=== PATIENT | female | born 1975 | race Caucasian/White ===

== ENCOUNTER → 2021-07-04 | Outpatient (CLI) | payer OTHER ==
[~2021-07-04] MED LIST: E-Z-GAS II EFFERVESCENT PACKET (SODIUM BICARB./CITRIC ACID/SIMETHICONE) As Ordered ONE; E-Z-HD 98% w/w 340GM SUSP BTL As Ordered ONE; E-Z-PAQUE 96% w/w SUSP 176GM BTL As Ordered ONE
--- NOTE | 2021-07-04 17:44 | REP ---
INDICATION: GERD, DYSPHAGIA. COMPARISON: None TECHNIQUE: This procedure was performed by Amber Garcia [facility], under the direct supervision of Dr. Poe. Images were reviewed with Dr. Poe prior to dictation. Liquid barium and gas producing crystals were given in the erect position, as well as liquid barium in the prone oblique position in order to perform a double contrast esophagram. FINDINGS: A single view PA chest x-ray is submitted as a lang path therapist film. The superior mediastinal structures are midline. The heart size is within normal limits. The lungs are clear. The oral and pharyngeal stages of deglutition were unremarkable. Esophageal transport is prompt and efficient and there is no evidence of esophagitis, stricture, or mucosal ring. There is no evidence of a hiatal hernia. No gastroesophageal reflux was visualized. IMPRESSION: Unremarkable esophagram. 0.6 minutes of fluoroscopy time was utilized for this procedure. Some fluoroscopic images are performed with last image hold technology. These images require no additional radiation. <Electronically signed by Amber Garcia > 07/04/21 1625 <Electronically signed by Julio Poe > 07/04/21 0105
== END ==
LOC: M RAD 08:52
PROVIDERS: ATTEND Physician Assistant Medical
DX: K21.9 Gastro-esophageal reflux disease without esophagitis (principal); R13.10 Dysphagia, unspecified

== ENCOUNTER → 2021-07-19 | Outpatient (CLI) | payer OTHER ==
[~2021-07-19] MED LIST changes: +ALLE180T33 PO; -E-Z-GAS II EFFERVESCENT PACKET (SODIUM BICARB./CITRIC ACID/SIMETHICONE) As Ordered ONE; -E-Z-HD 98% w/w 340GM SUSP BTL As Ordered ONE; -E-Z-PAQUE 96% w/w SUSP 176GM BTL As Ordered ONE; +LEVOTAB10 PO; +MONT10TA10 PO; +PANT40TA29 PO
== END ==
LOC: M LABSMTC 11:46
PROVIDERS: ATTEND Anesthesiology
DX: Z01.812 Encounter for preprocedural laboratory examination (principal); Z20.822 Contact with and (suspected) exposure to COVID-19

== ENCOUNTER 2021-07-24 10:37 | Day surgery (SDC) | payer OTHER ==
[~2021-07-24] VITALS: Ht 162.6 cm; Wt 86.5 kg
[~2021-07-24 10:37] MED LIST changes: +NS 1,000 ML IV ONE
--- OUTSIDE RECORDS SUMMARY | 2021-07-24 10:41 | CCD | Clinical Summary ---
Author [facility] Organization [facility] Address [address] [place] [address] Phone Care Team Providers Care Chief Creative Officer Name Role Phone Angeline He PP [phone] [facility], Manuel LOPEZ Unavailable [phone] Faisal Johnson MD Unavailable [phone] Reason for Referral No Reason for Referral Recorded Reason for Visit and Chief Complaint visit for: Problems Includes: Problems addressed during this encounter and other active Problems All Visits Onset Date - Time Resolved Date - Time Provider Co ndition Status Hemangioma 10/03/2020 - 12:00AM Angeline FREEMAN A ctive Note: per MRI of spine dated 10-03-20: several small hemangiomas; referred to control systems specialist Tendonitis Elbow 03/17/2019 - 12:00AM Angeline FREEMAN Active Note: Unchanged Esophageal Reflux 03/17/2019 - 12:00AM Angeline FREEMAN Active Note: Unchanged Generalized Anxiety Disorder 09/10/2018 - 12:00AM Angeline FREEMAN Active Note: Unchanged Allergic Rhinitis 09/13/2017 - 12:00AM Angeline FREEMAN Active Note: Unchanged Nicotine Dependence 09/13/2017 - 12:00AM Angeline FREEMAN Active Note: Unchanged Palpitations 02/27/2016 - 12:00AM Angeline FREEMAN A ctive Note: Unchanged - a few leo hs ago- just sitting on the couch Impaired Fasting Glucose 02/15/2014 - 12:00AM Angeline FREEMAN Active Note: 02/2014 BG 104, repeat 3 months ALLERGIC DRUG REACTION TO PENICILLIN 12/13/2013 - 12:00AM Angeline FREEMAN Active Note: Unchanged Pigmented Nevus 12/10/2013 - 12:00AM Angeline Ramirez Active Note: Unchanged - , possibly dysplastic, patient is freckled with several jackie back, will send to derm for eval please see Derm Consult 04/2014 Plan of Treatment Referrals To Diagnosis Rheumatology Sicca syndrome, unsp ecified Note: Please schedule patient with provi lyndsey for Sjorgen syndrome. Future Appointments Date Time Location Provider Acute Follow-up Well 07/18/2021 8:00AM [facility] Tarik Morley NP [facility] 03/12/2022 8:00AM [facility] Angeline FREEMAN Future Tests Order Diagnosis Results Due Ordering Provid er [id number] - *Revisit Acute Acute Follow-up Telepho clover Sicca syndrome, unspecified 05/18/21 Janette Morley NP Assessments Includes: Assessments from this encounter - Sjogren syndrome Instructions Includes: Instructions from this encounterNo Instructions Recorded Medical Equipment - Implanted Devices Includes: Current DevicesNo Medical Equipment Recorded Medications Includes: Medications discussed during this encounter and other current Medicati ons New / Renewed during this visit Janette ceron CONNECTION WORKER on 05/18/2021 predniSONE 10 MG Oral Tablet Provider: Janette Morley NP 9 day supply: 18 tablet, 0 refills Diagnosis: Sicc a syndrome, unspecified 30mg x 3 days, 20mg x 3 days, 10mg x 3 days Pharmacy: [id number] - [id number] [facility], [phone] Current Medications (continue as prescribed) Pantoprazole Sodium 40 MG Oral Tablet Delayed Release 2020 - 09/13/2021 Provider: Janette Morley NP Diagnosis: Gastro-esophageal re flux disease without esophagitis take one tablet daily Tarik Multivitamin for Women Oral Tablet 03/10/2021 Provider: Diagnosis: 1 tqb po daily EpiPen 2-Anival 0.3 MG/0.3ML Injection Solution Auto-injector 0 03/10/2021 Provider: Angeline FREEMAN Diagnosis: Anaphyl reaction due to advrs eff drug/med prop admin, init use as directed keep on hand for refills Levocetirizine Dihydrochloride 5 MG Oral Tablet 03/10/2021 Provider: Angeline FREEMAN Diagnosis: Allergic rhinitis, u nspecified 1 every bedtime Montelukast Sodium 10 MG Oral Tablet 03/10/2021 Pro vider: Angeline FREEMAN Diagnosis: Allergic rhinitis, u nspecified 1 every bedtime Omeprazole 20 MG Oral Capsule Delayed Release 03/10/2021 Provider: Angeline FREEMAN Diagnosis: Gastro-esophageal re flux disease with esophagitis once a day Medications Administered Includes: Administered Medications from this encounterNo Administered Medications Recorded Vital Signs Includes: Vital Signs from this encounterNo Vital Signs Recorded For Specified Dates Results Includes: Results discussed during this encounterNo Results Recorded For Specified Dates History of Present Illness Includes: History of Present Illness from this encounterNo History of Present Illness Recorded Social History No Social History Recorded - Smoking Status Unknown Procedures and Surgical History Includes: Procedures from this encounterNo Procedures For Specified Dates. No Surgical History Recorded Medical History Includes: Medical History addressed during this encounterNo Medical History Recorded Family History Includes: Family History addressed during this encounterNo Family History Recorded Review of Systems Includes: Review of Systems from this encounterNo Review of Systems Recorded Mental Status Includes: Mental Status from this encounterNo Mental Status Recorded Functional Status Includes: Functional Status from this encounterNo Functional Status Recorded Physical Exam Includes: Physical Exam from this encounterNo Physical Exam Recorded Immunizations Includes: Immunizations addressed during this encounterNo Immunizations Recorded Allergies Includes: Active Allergies Substance Type Reaction Onset Date - Time Resolved Date - Ti me Status Amoxicillin Allergy Skin Rashes, Hives 11/26/2011 - 12:00AM Active Note: severe reaction, vomit ing, diarrhea, sent to ER Encounters Encounter Provider Location Date Check-In Time Check-Out Time D iagnosis [Patient Encounter] Janette Morley NP 05/18/2021 2:02PM 11:59PM Sjogren Syndrome Insurance Includes: Active Insurance Policies Plan Name Member ID Group # Subscriber Relationship Effective Da bryanna 1 - [employer] [id number] Yuko Ray Self 06/07/2020 - Unknown Advance Directives Includes: Current Advance Directives Directive Pat Aware Third Alliance Party Effective Date Reviewed Status RHIO Yes 12/31/2012 Current and Ve rified Note: 12/01/12 Ebola Screening Performed Yes 09/11/2019 Current and Verified Note: Within the last month, have you traveled outside of the [place]? - NO packet given Pt Bill of Rights, Priv Prac, Ad Dir Yes 09/19/2020 Current and Verified Note: Pt declined AD packet Health Concerns Includes: Health Concerns addressed during this encounterNo Active Health Concerns Recorded Goals Includes: Goals addressed during this encounterNo Active Goals Recorded Interventions Includes: Interventions addressed during this encounterNo Interventions Recorded Evaluations & Outcomes Includes: Evaluations & Outcomes addressed during this encounterNo Outcomes Recorded
--- OUTSIDE RECORDS SUMMARY | 2021-07-24 10:41 | CCD | Clinical Summary ---
Author Author [facility] Organization [facility] Address [address] [place] [address] Phone Care Team Providers Care Ovens Supervisor Name Role Phone Angeline He PP [phone] [facility] Associ[facility], Manuel OLPEZ Unavailable [phone] Faisal Johnson MD Unavailable [phone] Reason for Referral No Reason for Referral Recorded Reason for Visit and Chief Complaint visit for: Telephonic Encounter for Acute Care. Telephonic visit is being utili zed due to the COVID19 pandemic - The Chief Complaint is: Pt screened for telep geeta visit to follow up on Sjogren syndrome. Pt states she is feeling much much better. Pt screened for 8 minutes. No concerns noted. KLavereLPN Problems Includes: Problems addressed during this encounter and other active Problems Current Visit Onset Date - Time Resolved Date - Time Provider C ondition Status Esophageal Reflux 03/17/2019 - 12:00AM Angeline FREEMAN Active Note: Unchanged Past Visits Onset Date - Time Resolved Date - Time Provider Co ndition Status Hemangioma 10/03/2020 - 12:00AM Angeline FREEMAN A ctive Note: per MRI of spine dated 10-03-20: several small hemangiomas; referred to mobile marketing specialist Tendonitis Elbow 03/17/2019 - 12:00AM Angeline [...] see Derm Consult 04/2014 Plan of Treatment Future Appointments Date Time Location Provider Acute Follow-up Well 07/18/2021 8:00AM [facility] Tarik Morley NP [facility] 03/12/2022 8:00AM [facility] Angeline FREEMAN Future Tests Order Diagnosis Results Due Ordering Provid er Visit Summary - Standard Visit Visit Summary Standard Visi t Gastro-esophageal reflux disease without esophagitis 05/25/21 Janette Morley NP Assessments Includes: Assessments from this encounter - Esophageal reflux Instructions Includes: Instructions from this encounterNo Instructions Recorded Medical Equipment - Implanted Devices Includes: Current DevicesNo Medical Equipment Recorded Medications Includes: Medications discussed during this encounter and other current Medicati ons Discontinued / Stopped on this date Tarik Morley NP on 05/18/2021 predniSONE 10 MG Oral Tablet Provider: Janette Morley NP Diagnosis: Sicca syndrome, unsp ecified Levocetirizine Dihydrochloride 5 MG Oral Tablet Provider: Angeline FREEMAN Diagnosis: Allergic rhinitis, u nspecified Current Medications (continue as prescribed) Pantoprazole Sodium 40 MG Oral Tablet Delayed Release 2020 - 09/13/2021 Provider: Janette Morley NP Diagnosis: Gastro-esophageal re flux disease without esophagitis take one tablet daily Omeprazole 20 MG Oral Capsule Delayed Release 03/10/2021 Provider: Angeline FREEMAN Diagnosis: Gastro-esophageal re flux disease with esophagitis once a day Tarik Multivitamin for Women Oral Tablet 03/10/2021 Provider: Diagnosis: 1 tqb po daily Montelukast Sodium 10 MG Oral Tablet 03/10/2021 Pro vider: Angeline FREEMAN Diagnosis: Allergic rhinitis, u nspecified 1 every bedtime EpiPen 2-Anival 0.3 MG/0.3ML Injection Solution Auto-injector 0 03/10/2021 Provider: Angeline FREEMAN Diagnosis: Anaphyl reaction due to advrs eff drug/med prop admin, init use as directed keep on hand for refills Medications Administered Includes: Administered Medications from this encounterNo Administered Medications Recorded Vital Signs Includes: Vital Signs from this encounter Vital Name 05/25/2021 10:07A Pulse Rate-Sitting (bpm) 69 Pain Level 0 Note: Limited vital signs due to t [facility] visit due to covid19. Jr Results Includes: Results discussed during this encounterNo Results Recorded For Specified Dates History of Present Illness Includes: History of Present Illness from this encounter Yuko Ray is a 45 year old female. - Allergy list reviewed - Medication reconciliation performed - A previous emergency room visit [facility] - checked for strep throat and [place] due to exposure to [place] - went on Saturday. Jr Yuko presents for a follow up visit r/t Sjorgens/ GERD Seen on 05/16 and diagnosed with GERD, changed from omeprazole to Pantoprazole 40mg BID. A referral to GI was placed. A telephone visit was completed on 05/18 as she developed severe dry mouth after taking PPI x 24 hours. She had reported symptoms of Sjorgens and her PCP was doing blood work and she had just had drawn that day. Discussed case with Dr. Randall, and plan to place on prednisone. Gave recommendations for non- pharmacologic measures placed. She tells me that over the weekend she developed severe throat pain. She was seen at and they diagnosed her with GERD, and stopped prednisone. She decided to go back on her Omeprazole 20mg daily. She has had no residual symptoms of GERD, throat pain, or globus sensation. She has referrals to rheumatology. Review of labs from 05/18 (negative for Sjorgens), remaining labs reviewed. She continues with non pharmacologic measures for Sjorgens and GERD. She remains on Omeprazole, but may try Pantoprazole again. She has a scheduled f/u in July, advised to call sooner for reoccurence of symptoms. She remains off of her Levoceterizine. Med list updated with reflected changes. Diet and exercise encouraged based on lab findings. TSH is stable. Total time of encounter is 21 minutes. Social History Description Last Updated Not a smoker Greater than 30 pack years 05/25/2021 Smoking status 05/25/2021 : Former smoker 05/25/2021 Procedures and Surgical History Includes: Procedures from this encounter Procedures Code Diagnosis Performing Provider Service Location Service Date Transition in care medication list update Summary provided electronically in CCDA format & reasonable certainty of receipt Medical History Includes: Medical History addressed during [...] Physical Exam Includes: Physical Exam from this encounter Immunizations Includes: Immunizations addressed during this encounterNo Immunizations Recorded Allergies Includes: Active Allergies Substance Type Reaction Onset Date - Time Resolved Date - Ti me Status Amoxicillin Allergy Skin Rashes, Hives 11/26/2011 - 12:00AM Active Note: severe reaction, vomit ing, diarrhea, sent to ER Encounters Encounter Provider Location Date Check-In Time Check-Out Time D iagnosis Telephonic Encounter Janette Morley WELD INSPECTOR [facility] 05/25/2021 10 :06AM 11:59PM Esophageal Reflux Insurance Includes: Active Insurance Policies Plan Name Member ID Group # Subscriber Relationship Effective Da bryanna 1 - [place] [employer] [id number] Yuko Ray Self 06/07/2020 - Unknown Advance Directives Includes: Current Advance Directives Directive Pat Aware Third Constitution Party Effective Date Reviewed Status RHIO Yes [...]
--- OUTSIDE RECORDS SUMMARY | 2021-07-24 10:41 | CCD | Clinical Summary ---
Author Author [facility] Organization [facility] Address [address] [place] [address] Phone Care Team Providers Care College Sports Assistant Name Role Phone Angeline He PP [phone] [facility] Associ[facility], Manuel LOPEZ Unavailable [phone] Faisal Johnson MD Unavailable [phone] Reason for Referral No Reason for Referral Recorded Reason for Visit and Chief Complaint visit for: Problems Includes: Problems addressed during this encounter and other active Problems All Visits Onset Date - Time Resolved Date - Time Provider Co ndition Status Hemangioma 10/03/2020 - 12:00AM Angeline FREEMAN A ctive Note: per MRI of spine dated 10-03-20: several small hemangiomas; referred to control specialist Tendonitis Elbow 03/17/2019 - 12:00AM Angeline [...] Impaired Fasting Glucose 02/15/2014 - 12:00AM Angeline FEREMAN Active Note: 02/2014 BG 104, repeat 3 [...] Location Provider Acute Follow-up Well 07/18/2021 8:00AM [facility] Tarik Morley CHEMIST PROTEINS [facility] 03/12/2022 8:00AM [facility] Angeline FREEMAN Assessments Includes: Assessments from this encounter - Sjogren syndrome Instructions Includes: Instructions from this encounterNo Instructions Recorded Medical Equipment - Implanted Devices Includes: Current DevicesNo Medical Equipment Recorded Medications Includes: Medications discussed during this encounter and other current Medicati ons New / Renewed during this visit Janette ceron CHEMIST PROTEINS on 05/18/2021 predniSONE 10 MG Oral Tablet Provider: Janette Morley NP 9 day supply: 18 tablet, 0 refills Diagnosis: Sicc a syndrome, unspecified 30mg x 3 days, 20mg x 3 days, 10mg x 3 days Pharmacy: [id number] - [id number] [facility] [phone] - Current Medications (continue as prescribed) Pantoprazole Sodium [...] Subscriber Relationship Effective Da bryanna 1 - [place] Exchange [id number] Yuko Ray Self 06/07/2020 - Unknown Advance Directives Includes: Current Advance Directives Directive Pat Aware Third Libertarian Effective Date Reviewed Status RHIO Yes 12/31/2012 [...]
--- OUTSIDE RECORDS SUMMARY | 2021-07-24 10:41 | CCD | Continuity of Care Document ---
Author Author Yuko JACOBO PA-C Organization Unknown Address [address], [address] [place] [address] Phone [phone] Care Team Providers Care Featheredge Machine Operator Name Role Phone Tarik Morleyn LOG RAFTER AUTM [phone] Problems Description No Active Problems Social History Type Date Description Comments Sex Unknown ETOH Use 4-5 Drinks twice per week Tobacco Use Start: Unknown Non Smoker Allergies, Adverse Reactions, Alerts Active Allergies Criticality Reaction | Severity Comments Date Penicillins Unable to assess criticality 06/19/2021 Medications Active Medications SIG Qnty Indications Ordering Provide r Date Golytely 236gm Solution Rec take per doctor's instructions for bowel prep. 4000ml Z12.11 Pedro randhawa MD 06/19/[address] take 4 tabs by mouth prior to procedure per instructions. 4tabs Z12.11 Pedro Parker MD 06/19/[address] take one tablet by mouth twice a day 60tabs K21.9 Pedro Parker MD 06/19/2021 One Daily Multivitamin Adult Tabl ets Daily Unknown Probiotic Capsules Daily Unknown Fish Oil 1000mg Capsules 2 da cici Unknown Immunizations Description No Information Available Vital Signs Date Vital Result Comment 06/19/2021 8:42am BP Systolic 132 mmHg BP Diastolic 84 mmHg Height 64 inches 5'4" Weight 191.00 lb BMI (Body Mass Index) 32.8 kg/m2 [place] Body Weight 120 lb Weight 86.638 kg BSA (Body Surface Area) 1.92 m2 Results Description No Information Available Procedures Description No Information Available Medical Devices Description No Information Available Encounters Description No Information Available Assessments Date Code Description Provider 06/19/2021 K21.9 Gastro-esophageal reflux disease without esophagitis Catrina RinaldiGRADY can-C 06/19/2021 R13.10 Dysphagia, unspecified Catrina JacoboGRADY-Brittany 06/19/2021 Z12.11 Encounter for screening for sotero gnant neoplasm of colon Catrina A VivianavenancioMELONIE peng Plan of Treatment 06/19/2021 - Catrina NewberryMELONIE peng* K21.9 Gastro-esophageal reflux disease without esophagitis * R13.10 Dysphagia, unspecified * Z12.11 Encounter for screening for malignant neoplasm of colon * * New Medication:* Protonix 40 mg * New Xrays:* Barium Swallow, Esophagram, Ordered: 06/19/21 * New Orders:* Endoscopy, Ordered: 06/19/21 * Comments:* Will arrange for upper endoscopy and colonoscopy. Reviewed risks and benefits of the procedures, as well as other options, with the patient. Prep for this procedure was discussed with patient, including risks and side effects associated with the prep. Patient verbalized understanding of all of the above and is in agreement to proceed. Patient will seek medical attention for any acute changes. Will monitor. * Follow up:* 2 weeks after procedure, sooner if needed. Functional Status Description No Information Available Mental Status Description No Information Available Referrals Refer to Reason for Referral Status Appt Date Chadwick Lopez M.D. DYSPHAGIA Scheduled 06/19 [facility] [address], [address] [place] [address] [phone]
--- OUTSIDE RECORDS SUMMARY | 2021-07-24 10:41 | CCD | Continuity of Care Document ---
Author Author Yuko JACOBO PA-C Organization Unknown Address [address], [address] [place] [address] Phone [phone] Care Team Providers Care Clerical Administrative Assistant Name Role Phone Tarik Morleyn CERTIFIED MIDWIFE AUTM [phone] Problems Description No Active Problems Social History [...] lb BMI (Body Mass Index) 32.8 kg/m2 [place] Body Weight 120 lb Weight 86.638 kg BSA (Body Surface Area) 1.92 m2 Results Description No Information Available Procedures Date Code Description Status 06/19/2021 32053 Office/Outpatient New Moderate M DM 45-59 Minutes Completed Medical Devices Description No Information Available Encounters Type Date Location Provider Dx Diagnosis Office Visit 06/19/2021 8:30a [facility] Catrina Ramirez MELONIE Jacobo K21.9 Gastro-esophageal reflux dis ease without esophagitis R13.10 Dysphagia, unspecified Z12.11 Encounter for screening for malignant neoplasm of colon Assessments Date Code Description Provider 06/19/2021 K21.9 Gastro-esophageal reflux disease without esophagitis Catrina A MELONIE Jacobo 06/19/2021 R13.10 Dysphagia, unspecified Catrina Ramirez MELONIE Jacobo 06/19/2021 Z12.11 Encounter for screening for sotero gnant neoplasm of colon Catrina aJmes MELONIE Jacobo Plan of Treatment 06/19/2021 - Catrina Ramirez MELONIE Jacobo* K21.9 Gastro-esophageal reflux disease without esophagitis * R13.10 Dysphagia, unspecified * Z12.11 Encounter for screening for malignant neoplasm of colon * * New Medication:* Protonix 40 mg * New Xrays:* Barium Swallow, Esophagram, Scheduled: 07/04/21 * New Orders:* Endoscopy with possible dilation, Ordered: 06/19/21 * Comments:* Will arrange for upper endoscopy with possible dilation and colonoscopy. Reviewed risks and benefits of [...] Date Chadwick Lopez M.D. DYSPHAGIA Scheduled 06/19 [facility] [address], [place] [id number] [phone]
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
[2021-07-24] MEDS ORDERED: propofoL 200 MG/20 ML VIAL As Ordered ONE ×3 (12:33→12:51)
[2021-07-24] MEDS ORDERED: LIDOCAINE 2% 100MG/5ML SDV (FOR ANES.) As Ordered ONE (12:33)
[2021-07-24] MEDS ORDERED: fentaNYL 100 MCG/2 ML INJECTION (J3010) As Ordered ONE (12:34)
--- NOTE | 2021-07-24 12:54 | ROOR ---
Patient Name: Yuko Ray Procedure Date: 07/24/2021 12:28 PM Date of : 1975 Age: 45 Room: [facility] Gender: Female Note Status: Finalized Procedure: Upper GI endoscopy Indications: Dysphagia, Heartburn Providers: Chadwick Lopez MD Referring MD: PETE Evans Requesting Provider: Medicines: Monitored Anesthesia Care Complications: No immediate complications. Procedure: Pre-Anesthesia Assessment: - Prior to the procedure, a History and Physical was performed, and patient medications and allergies were reviewed. The patient is competent. The risks and benefits of the procedure and the sedation options and risks were discussed with the patient. All questions were answered and informed consent was obtained. Patient identification and proposed procedure were verified by the physician, the nurse and the anesthesiologist in the procedure room. Mental Status Examination: alert and oriented. Airway Examination: normal oropharyngeal airway and neck mobility. Respiratory Examination: clear to auscultation. CV Examination: normal. Prophylactic Antibiotics: The patient does not require prophylactic antibiotics. Prior Anticoagulants: The patient has taken no previous anticoagulant or antiplatelet agents. ASA Grade Assessment: II - A patient with mild systemic disease. After reviewing the risks and benefits, the patient was deemed in satisfactory condition to undergo the procedure. The anesthesia plan was to use monitored anesthesia care (MAC). Immediately prior to administration of medications, the patient was re-assessed for adequacy to receive sedatives. The heart rate, respiratory rate, oxygen saturations, blood pressure, adequacy of pulmonary ventilation, and response to care were monitored throughout the procedure. The physical status of the patient was re-assessed after the procedure. The Endoscope was introduced through the mouth, and advanced to the second part of duodenum. The upper GI endoscopy was accomplished without difficulty. The patient tolerated the procedure well. Findings: Mucosal changes including ringed esophagus, crepe paper esophagus and punctate white spots were found in the lower third of the esophagus. Biopsies were obtained from the proximal and distal esophagus with cold forceps for histology of suspected eosinophilic esophagitis. Verification of patient identification for the specimen was done by the physician and nurse using the patient's name, date and medical record number. Estimated blood loss was minimal. Scattered mild inflammation characterized by erythema and granularity was found in the gastric antrum. Biopsies were taken with a cold forceps for Helicobacter pylori testing. The duodenal bulb and second portion of the duodenum were normal. Impression: - Esophageal mucosal changes suspicious for eosinophilic esophagitis. Biopsied. - Gastritis. Biopsied. - Normal duodenal bulb and second portion of the duodenum. Recommendation: - Patient has a contact number available for emergencies. The signs and symptoms of potential delayed complications were discussed with the patient. Return to normal activities tomorrow. Written discharge instructions were provided to the patient. - High fiber diet. - Continue present medications. - Await pathology results. - Follow an antireflux regimen. - Return to GI clinic if persistent symptoms or new symptoms. - Telephone GI clinic for pathology results in 2 weeks. - Return to primary care physician. Procedure Code(s): --- Professional --- 58323, Esophagogastroduodenoscopy, flexible, transoral; with biopsy, single or multiple Diagnosis Code(s): --- Professional --- K22.8, Other specified diseases of esophagus K29.70, Gastritis, unspecified, without bleeding R13.10, Dysphagia, unspecified R12, Heartburn CPT copyright 2019 [employer]. All rights reserved. The codes documented in this report are preliminary and upon director of design review may be revised to meet current compliance requirements. Chadwick Lopez MD Chadwick Lopez MD 07/24/2021 12:54:00 PM Electronically signed by Chadwick Lopez MD Number of Addenda: 0 Note Initiated On: 07/24/2021 12:28 PM Estimated Blood Loss: Estimated blood loss was minimal.
[2021-07-24 13:33] VITALS: BP 140/83
--- NOTE | 2021-07-24 13:57 | ROOR ---
Patient Name: Yuko Ray Procedure Date: 07/24/2021 12:28 PM Date of : 1975 Age: 45 Room: [facility] Gender: Female Note Status: Finalized Procedure: Colonoscopy Indications: Screening for colorectal malignant neoplasm Providers: Chadwick Lopez MD Referring MD: PETE Evans Requesting Provider: Medicines: Monitored Anesthesia Care Complications: No immediate complications. Procedure: Pre-Anesthesia Assessment: - Prior to the procedure, a History and Physical was performed, and patient medications and allergies were reviewed. The patient is competent. The risks and benefits of the procedure and the sedation options and risks were discussed with the patient. All questions were answered and informed consent was obtained. Patient identification and proposed procedure were verified by the physician, the nurse and the anesthesiologist in the procedure room. Mental Status Examination: alert and oriented. Airway Examination: normal oropharyngeal airway and neck mobility. Respiratory Examination: clear to auscultation. CV Examination: normal. Prophylactic Antibiotics: The patient does not require prophylactic antibiotics. Prior Anticoagulants: The patient has taken no previous anticoagulant or antiplatelet agents. ASA Grade Assessment: II - A patient with mild systemic disease. After reviewing the risks and benefits, the patient was deemed in satisfactory condition to undergo the procedure. The anesthesia plan was to use monitored anesthesia care (MAC). Immediately prior to administration of medications, the patient was re-assessed for adequacy to receive sedatives. The heart rate, respiratory rate, oxygen saturations, blood pressure, adequacy of pulmonary ventilation, and response to care were monitored throughout the procedure. The physical status of the patient was re-assessed after the procedure. The Colonoscope was introduced through the anus and advanced to the terminal ileum, with identification of the appendiceal orifice and IC valve. The colonoscopy was performed without difficulty. The patient tolerated the procedure well. The quality of the bowel preparation was good. The terminal ileum, ileocecal valve, appendiceal orifice, and rectum were photographed. Scope insertion time was 2 minutes. Scope withdrawal time was 8 minutes. The total duration of the procedure was 12 minutes. Findings: The perianal and digital rectal examinations were normal. The terminal ileum contained a few eight mm ulcers. No bleeding was present. No stigmata of recent bleeding were seen. Biopsies were taken with a cold forceps for histology. Verification of patient identification for the specimen was done by the physician and nurse using the patient's name, date and medical record number. Estimated blood loss was minimal. A 4 mm polyp was found in the ascending colon. The polyp was sessile. The polyp was removed with a cold biopsy forceps. Resection and retrieval were complete. Multiple small-mouthed diverticula were found in the sigmoid colon. There was no evidence of diverticular bleeding. Non-bleeding external and internal hemorrhoids were found during retroflexion. The hemorrhoids were medium-sized. Impression: - A few ulcers in the terminal ileum. Biopsied. - One 4 mm polyp in the ascending colon, removed with a cold biopsy forceps. Resected and retrieved. - Moderate diverticulosis in the sigmoid colon. There was no evidence of diverticular bleeding. - Non-bleeding external and internal hemorrhoids. Recommendation: - Patient has a contact number available for emergencies. The signs and symptoms of potential delayed complications were discussed with the patient. Return to normal activities tomorrow. Written discharge instructions were provided to the patient. - High fiber diet. - Continue present medications. - Await pathology results. - Repeat colonoscopy in 5-10 years for surveillance based on pathology results. - Telephone GI clinic for pathology results in 2 weeks. - Return to GI clinic if persistent symptoms or new symptoms. - Return to primary care physician. Procedure Code(s): --- Professional --- 81005, Colonoscopy, flexible; with biopsy, single or multiple Diagnosis Code(s): --- Professional --- Z12.11, Encounter for screening for malignant neoplasm of colon K63.3, Ulcer of intestine K63.5, Polyp of colon K64.8, Other hemorrhoids K57.30, Diverticulosis of large intestine without perforation or abscess without bleeding CPT copyright 2019 [employer]. All rights reserved. The codes documented in this report are preliminary and upon rn gyn review may be revised to meet current compliance requirements. Chadwick Lopez MD Chadwick Lopez MD 07/24/2021 1:56:33 PM Electronically signed by Chadwick Lopez MD Number of Addenda: 0 Note Initiated On: 07/24/2021 12:28 PM Estimated Blood Loss: Estimated blood loss was minimal.
== END 2021-07-24 14:02 | disposition home or self-care (01) ==
LOC: M OPP 10:37
PROVIDERS: ATTEND Internal Medicine Gastroenterology
DX: Z12.11 Encounter for screening for malignant neoplasm of colon (principal); K63.5 Polyp of colon; K63.3 Ulcer of intestine; K64.8 Other hemorrhoids; K57.30 Diverticulosis of large intestine without perforation or abscess without bleeding; K22.9 Disease of esophagus, unspecified; K29.70 Gastritis, unspecified, without bleeding; R12 Heartburn; Z79.899 Other long term (current) drug therapy; Z88.0 Allergy status to penicillin
CPT/HCPCS: 43239; 45380; 88305; J3010